=== PATIENT | female | born 1985 | race Caucasian/White ===

== ENCOUNTER 2018-07-12 14:36 | Emergency (ER) | payer OTHER ==
[2018-07-12 14:45] VITALS: BP 143/78
--- NOTE | 2018-07-12 15:10 | ED ---
Skin Complaint - HPI Summary HPI Summary: Pt is a 33 y/o male who presents to the ED s/p chemical exposure at 13:00. 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 The column was inside the hernandez so her face was not exposed, however her chest got splashed. Pt immediately went to the bathroom and took off the affected lab coat and shirt, and splashed her chest with water for several minutes. She denies any skin redness or irritation, eye irritation, cough, or cooling sensation in her lungs. - History of Current Complaint Chief Complaint: EDExposureHeatCold Time Seen by Provider: 07/12/18 14:47 Stated Complaint: CHEM EXPOSER Hx Obtained From: Patient Onset/Duration: Started Hours Ago - 13:00, Resolved Timing: Lasting Minutes Current Severity: None Pain Intensity: 0 Pain Scale Used: 0-10 Numeric Skin Location: Chest Aggravating Symptom(s): Nothing Alleviating Symptom(s): Clothing Removal, Other: - Washing with water Associated Signs & Symptoms: Negative Related History: Other: - acetonitrile exposure - Allergy/Home Medications Allergies/Adverse Reactions: Allergies Allergy/AdvReac Type Severity Reaction Status Date / Time No Known Allergies Allergy Verified 07/12/18 14:38 Home Medications: Home Medications NK [No Home Medications Reported] 07/12/18 [History Confirmed 07/12/18] PMH/Surg Hx/FS Hx/Imm Hx Endocrine/Hematology History: Denies: Hx Diabetes Cardiovascular History: Denies: Hx Hypertension Infectious Disease History: No Infectious Disease History: Denies: Traveled Outside the [place] in Last 30 Days - Family History Known Family History: Negative: Blood Disorder - Social History Alcohol Use: Occasionally Hx Substance Use: No Substance Use Type: Reports: None Hx Tobacco Use: No Smoking Status (MU): Never Smoked Tobacco Review of Systems Negative: Other - irritation Negative: Cough, Other - Lung cooling sensation Positive: Other - Acetonitrile exposure, NEGATIVE: pain, redness All Other Systems Reviewed And Are Negative: Yes Physical Exam - Summary Physical Exam Summary: Appearance: Well appearing, no pain distress Skin: warm, dry, reflects adequate perfusion, no redness Head/face: normal Eyes: EOMI, NAVEEN ENT: mucous membranes moist, no irritation of mouth, throat clear Neck: supple, non-tender Respiratory: CTA, breath sounds present Cardiovascular: RRR, pulses symmetrical Abdomen: non-tender, soft Bowel Sounds: present Musculoskeletal: normal, strength/ROM intact Neuro: normal, sensory motor intact, A&Ox3 Triage Information Reviewed: Yes Vital Signs On Initial Exam: Initial Vitals Temp Pulse Resp BP Pulse Ox 99.1 F 70 19 143/78 99 07/12/18 14:41 07/12/18 14:41 07/12/18 14:41 07/12/18 14:41 07/12/18 14:41 Vital Signs Reviewed: Yes Diagnostics - Vital Signs Vital Signs Temp Pulse Resp BP Pulse Ox 07/12/18 14:41 99.1 F 70 19 143/78 99 - Laboratory Lab Statement: Any lab studies that have been ordered have been reviewed, and results considered in the medical decision making process. Course/Dx - Course Course Of Treatment: Patient exposed to a chemical compound that metabolizes to cyanide. This was splashed on her clothing and may have touched her chest. She immediately removed her clothing and cleansed the area thoroughly. There is not any irritation or discomfort at the site. She was also concerned that she may have inhaled some. This was discussed with poison control however they state that the compound is not volatile and that it would be unlikely that she inhaled it as it doesn't aerosolize well. She has no symptoms at present. She is discharged to go home to further cleanse her skin. Return precautions given. - Diagnoses Provider Diagnoses: Exposure to chemical irritant - Physician Notifications Discussed Care Of Patient With: Poison Control Time Discussed With Above Provider: 14:54 Instructed by Provider To: Other - Wash skin with water and monitor for skin irritation. Discharge - Sign-Out/Discharge Documenting (check all that apply): Patient Departure - Discharge - Discharge Plan Condition: Improved Disposition: HOME Patient Education Materials: Chemical Skin Burn (ED) Referrals: [facility] - Ebenezer MCKINNEY [Primary Care Provider] - Additional Instructions: Go home and clean the skin well in the shower. Return with difficulty breathing , burning in the chest, feeling ill, worse, new symptoms or other concerns as discussed. - Billing Disposition and Condition Condition: IMPROVED Disposition: Home - Attestation Statements Document Initiated by Scribe: Yes Documenting Scribe: Sosa Molina Provider For Whom Scribe is Documenting (Include Credential): Isauro Betancur MD Scribe Attestation: Sosa Ring scribed for Isauro Betancur MD on 07/12/18 at 1923. Scribe Documentation Reviewed: Yes Provider Attestation: The documentation as recorded by the scribe, Sosa Molina accurately reflects the service I personally performed and the decisions made by me, Isauro Betancur MD
== END 2018-07-12 15:07 | disposition home or self-care (01) ==
LOC: ED 14:36
DX: Z77.098 Contact with and (suspected) exposure to other hazardous, chiefly nonmedicinal, chemicals (principal)
CPT/HCPCS: 99282